=== PATIENT | male | born 1975 | race Caucasian/White ===

== ENCOUNTER → 2018-09-28 | Outpatient (CLI) | payer BC ==
[~2018-09-28] MED LIST: ANDROGEL2.5 GM
[2018-09-28 16:19] LABS: BASOPHILS ABSOLUTE AUTO 0.06 K/mm3 (0.00-0.23); BASOPHILS PERCENT AUTO 2 % (0-2); EOSINOPHILS PERCENT AUTO 3 % (0-6); Hematocrit 38.8 % (37.0-53.0); Hemoglobin 13.4 g/dL (13.5-17.5); IMMATURE GRAN ABSOLUTE AUTO 0.01 K/mm3 (0.00-0.10); IMMATURE GRAN PERCENT AUTO 0 % (0-1); LYMPHOCYTES PERCENT AUTO 29 % (21-46); MONOCYTES ABSOLUTE AUTO 0.93 K/mm3 (0.16-1.47); MONOCYTES PERCENT AUTO 23 % (4-13); Mean Corpuscular HGB 30.9 pg (26.0-34.0); Mean Corpuscular HGB Conc 34.5 g/dL (31.5-36.5); Mean Corpuscular Volume 90 fL (80-100); Mean Platelet Volume 10.4 fL (9.1-12.4); NEUTROPHILS ABSOLUTE AUTO 1.78 K/mm3 (1.96-9.15); NEUTROPHILS PERCENT AUTO 44 % (41-73); Platelet Count 247 K/mm3 (150-400); RDW Coefficient Variation 11.8 % (11.7-14.2); RDW Standard Deviation 38.2 fL (35.1-46.3); Red Blood Cell Count 4.33 M/mm3 (4.30-5.90); White Blood Cell Count 4.08 K/mm3 (4.00-11.30)
[2018-09-28 16:37] LABS: Alanine Aminotransfer (ALT/SGP 32 U/L (12-78); Albumin, Blood 3.9 g/dL (3.4-5.0); Albumin/Globulin Ratio 1.2 (0.8-1.8); Alk Phos 66 U/L (50-136); Anion Gap 5 mmol/L (6-16); Aspartate Aminotrans (AST/SGOT 25 U/L (12-37); Bilirubin, Total 0.4 mg/dL (0.1-1.0); Blood Urea Nitrogen 15 mg/dL (8-24); Bun/Creatinine Ratio 16.1 (12.0-20.0); CO2, Blood 28 mmol/L (21-32); Calcium, Blood 8.5 mg/dL (8.5-10.1); Chloride, Blood 106 mmol/L (98-108); Creatinine, Blood 0.93 mg/dL (0.60-1.20); Globulin, Blood 3.3 g/dL (2.2-4.0); Glomerular Filtration Rate >60 (60-); Glucose, Blood 90 mg/dL (70-99); Magnesium, Blood 2.3 mg/dL (1.6-2.4); Potassium, Blood 3.1 mmol/L (3.5-5.5); Sodium, Blood 139 mmol/L (136-145); Total Protein, Blood 7.2 g/dL (6.4-8.2)
== END ==
LOC: LAB SHORT 15:35 → LAB 15:35
PROVIDERS: Family Medicine
DX: R10.84 Generalized abdominal pain (principal); R11.2 Nausea with vomiting, unspecified
CPT/HCPCS: 80053; 83735; 85025

== ENCOUNTER 2020-12-05 16:52 | Emergency (ER) | payer BC ==
[~2020-12-05] VITALS: Ht 177.8 cm; Wt 90.7 kg
[2020-12-05] MEDS ORDERED: LIDO700A20 TOP (17:43)
== END 2020-12-05 17:54 | disposition home or self-care (01) ==
LOC: ER 16:52
DX: S39.012A Strain of muscle, fascia and tendon of lower back, initial encounter (principal); X50.1XXA Overexertion from prolonged static or awkward postures, initial encounter
CPT/HCPCS: 72100; 96372; 99283-25; A9270; J1885

== ENCOUNTER → 2025-01-22 | Outpatient (CLI) | payer BC ==
[~2025-01-22] MED LIST changes: +LIDO700A20 TOP
[2025-01-22 09:00] LABS: BASOPHILS ABSOLUTE AUTO 0.12 K/mm3 (0.00-0.23); BASOPHILS PERCENT AUTO 2 % (0-2); EOSINOPHILS ABSOLUTE AUTO 0.63 K/mm3 (0.00-0.68); EOSINOPHILS PERCENT AUTO 8 % (0-6); Hematocrit 47.0 % (37.0-53.0); Hemoglobin 16.0 g/dL (13.5-17.5); IMMATURE GRAN ABSOLUTE AUTO 0.05 K/mm3 (0.00-0.10); IMMATURE GRAN PERCENT AUTO 1 % (0-1); LYMPHOCYTES ABSOLUTE AUTO 1.10 K/mm3 (0.84-5.20); LYMPHOCYTES PERCENT AUTO 14 % (21-46); MONOCYTES ABSOLUTE AUTO 0.89 K/mm3 (0.16-1.47); MONOCYTES PERCENT AUTO 12 % (4-13); Mean Corpuscular HGB Conc 34.0 g/dL (31.5-36.5); Mean Corpuscular Volume 93 fL (80-100); NEUTROPHILS ABSOLUTE AUTO 4.94 K/mm3 (1.96-9.15); NEUTROPHILS PERCENT AUTO 64 % (41-73); NRBC ABSOLUTE 0.00 K/mm3 (0.00-0.02); NRBC Auto 0.0 /100 WBC (0.0-0.2); Platelet Count 269 K/mm3 (150-400); RDW Coefficient Variation 13.0 % (11.7-14.2); RDW Standard Deviation 44.6 fL (35.1-46.3)
[2025-01-22 09:19] LABS: Alanine Aminotransfer (ALT/SGP 47.0 U/L (12-78); Albumin, Blood 3.9 g/dL (3.4-5.0); Albumin/Globulin Ratio 1.1 (0.8-1.8); Anion Gap 9.0 mmol/L (3-11); Aspartate Aminotrans (AST/SGOT 27.0 U/L (12-37); Bilirubin, Total 0.4 mg/dL (0.1-1.0); Blood Urea Nitrogen 11.0 mg/dL (8-24); CO2, Blood 29.0 mmol/L (21-32); Calcium, Blood 9.0 mg/dL (8.5-10.1); Chloride, Blood 104.0 mmol/L (98-108); Creatinine, Blood 1.29 mg/dL (0.60-1.20); Globulin, Blood 3.7 g/dL (2.2-4.0); Glucose, Blood 84.0 mg/dL (70-99); Potassium, Blood 4.3 mmol/L (3.5-5.5); Sodium, Blood 138.0 mmol/L (136-145); Thyroid Stimulating Hormone 4.653 uIU/mL (0.360-4.800); Total Protein, Blood 7.6 g/dL (6.4-8.2)
== END ==
LOC: LAB SHORT 08:51 → LAB 08:51
PROVIDERS: Chiropractor
DX: R55 Syncope and collapse (principal)
CPT/HCPCS: 80053; 84443; 84484; 85025; 85379

== ENCOUNTER 2025-06-10 08:26 | Inpatient (IN) | payer BC ==
[~2025-06-10] VITALS: Ht 175.3 cm; Wt 88.8 kg
[~2025-06-10 08:26] MED LIST changes: -OLMESARTAN MEDO20 MG PO
[2025-06-10] MEDS ORDERED: Piperacillin/Tazobactam Sod 3.375 GM in NS 100 ML IV ONE (09:45)
[2025-06-10] MEDS ORDERED: NS 1,000 ML IV SCH ×2 (09:45→16:00)
[2025-06-10] MEDS ORDERED: Ondansetron HCl 2 MG / ML 2ML Vial IV ONE (09:45)
[2025-06-10 10:11] LABS: Source, Urine Clean Catch
[2025-06-10 10:17] LABS: Bilirubin, Urine 3+ (Neg); Color, Urine Amber (P-Yellow); Glucose Qualitative, Urine Neg (Neg); Ketones, Urine 3+ (Neg); Leukocyte Esterase, Urine 1+ (Neg); Protein, Urine 3+ (Neg); Specific Gravity, Urine 1.010 (1.003-1.022); Urobilinogen, Urine 4+ (Normal)
[2025-06-10 10:32] LABS: Red Blood Cells, Urine 0-2 /hpf (0-2); White Blood Cells, Urine 0-2 /hpf (0-5)
[2025-06-10] MEDS ORDERED: Ketorolac Tromethamine 15mg Vial IV ONE (13:40)
[2025-06-10 14:04] LABS: Prothrombin Time Results 14.8 Sec (9.7-11.5)
[2025-06-10] MEDS ORDERED: Ondansetron HCl 2 MG / ML 2ML Vial IV PRN (15:55)
[2025-06-10] MEDS ORDERED: FLU VACC TS2025-26(6MOS UP)/PF 45 MCG/0.5 ML SYRINGE IM SCH (16:00)
[2025-06-10 16:20] LABS: Ferritin, Serum 808.0 ng/mL (26-388); Total Iron Binding Capacity 337.0 ug/dL (250-450)
[2025-06-10] MEDS ORDERED: Ketorolac Tromethamine 15mg Vial IV PRN ×2 (16:40→20:58)
[2025-06-10] MEDS ORDERED: NS 1,000 ML IV ONE (16:40)
[2025-06-10 17:25] VITALS: BP 150/80
[2025-06-10] MEDS ORDERED: OLMESARTAN MEDO20 MG PO (17:46)
[2025-06-10] MEDS ORDERED: Piperacillin/Tazobactam Sod 3.375 GM in NS 100 ML IV SCH (18:00)
[2025-06-10 20:12] VITALS: BP 135/77
[2025-06-10] MEDS ORDERED: NS 250 ML IV PRN (22:05)
[2025-06-11 00:19] VITALS: BP 125/76
[2025-06-11 04:08] VITALS: BP 156/72
--- NOTE | 2025-06-11 04:56 | NUR ---
ORE BUYER CALLED, PT WITH ST CHANGES. HEART RATE INCREASED TO 110-120'S SINCE APPROX 0300 AND PT C/O CHEST CONGESTION/ TIGHTNESS. BIOINFORMATICS TEAM MEMBER PROVIDER NOTIFIED- NO NEW ORDERS.
[2025-06-11 05:41] VITALS: BP 125/77
--- NOTE | 2025-06-11 05:50 | NUR ---
SHIFT SUMMARY PT WITH FEVERS/ CHILLS/ SWEATS DURING THE NIGHT. MEDICATED WITH TORADOL WITH REDUCTION IN FEVER AND RELIEF OF BODY ACHES. PT TACHYCARDIC DURING THE NIGHT WITH HR UP TO 110-120'S WITH SOME ST CHANGES PER VENETIAN BLIND WASHER. PT C/O CHEST CONGESTION/TIGHTNESS. PROVIDER NOTIFIED WITH NO NEW ORDERS. SPUTUM SAMPLE PENDING- PT AWARE OF NEED IF HIS COUGH BECOMES PRODUCTIVE. IVF AND IV ANTIBIOTICS INFUSING PER ORDER. PT INDEPENDENT TO BATHROOM WITH STEADY GAIT. AT BEDSIDE. PT SLEPT INTERMITTENTLY DURING THE NIGHT.
[2025-06-11 07:56] LABS: BASOPHILS ABSOLUTE AUTO 0.05 K/mm3 (0.00-0.23); BASOPHILS PERCENT AUTO 0 % (0-2); EOSINOPHILS ABSOLUTE AUTO 0.17 K/mm3 (0.00-0.68); EOSINOPHILS PERCENT AUTO 1 % (0-6); Hematocrit 39.4 % (37.0-53.0); Hemoglobin 13.7 g/dL (13.5-17.5); IMMATURE GRAN ABSOLUTE AUTO 0.19 K/mm3 (0.00-0.10); IMMATURE GRAN PERCENT AUTO 1 % (0-1); LYMPHOCYTES ABSOLUTE AUTO 0.99 K/mm3 (0.84-5.20); LYMPHOCYTES PERCENT AUTO 4 % (21-46); MONOCYTES ABSOLUTE AUTO 1.67 K/mm3 (0.16-1.47); MONOCYTES PERCENT AUTO 7 % (4-13); Mean Corpuscular HGB Conc 34.8 g/dL (31.5-36.5); Mean Corpuscular Volume 91 fL (80-100); NEUTROPHILS ABSOLUTE AUTO 19.75 K/mm3 (1.96-9.15); NEUTROPHILS PERCENT AUTO 87 % (41-73); NRBC ABSOLUTE 0.00 K/mm3 (0.00-0.02); NRBC Auto 0.0 /100 WBC (0.0-0.2); Platelet Count 233 K/mm3 (150-400); RDW Coefficient Variation 13.2 % (11.7-14.2); RDW Standard Deviation 45.0 fL (35.1-46.3)
[2025-06-11 08:13] VITALS: BP 141/83
[2025-06-11 08:21] LABS: Alanine Aminotransfer (ALT/SGP 205.0 U/L (12-78); Albumin, Blood 2.3 g/dL (3.4-5.0); Albumin/Globulin Ratio 0.6 (0.8-1.8); Anion Gap 9.0 mmol/L (3-11); Aspartate Aminotrans (AST/SGOT 82.0 U/L (12-37); Bilirubin, Total 8.1 mg/dL (0.1-1.0); Blood Urea Nitrogen 11.0 mg/dL (8-24); CO2, Blood 24.0 mmol/L (21-32); Calcium, Blood 8.2 mg/dL (8.5-10.1); Chloride, Blood 105.0 mmol/L (98-108); Creatinine, Blood 1.46 mg/dL (0.60-1.20); Globulin, Blood 3.8 g/dL (2.2-4.0); Glucose, Blood 129.0 mg/dL (70-99); Potassium, Blood 3.7 mmol/L (3.5-5.5); Sodium, Blood 134.0 mmol/L (136-145); Total Protein, Blood 6.1 g/dL (6.4-8.2)
[2025-06-11] MEDS ORDERED: NS 1,000 ML IV SCH (09:00)
[2025-06-11] MEDS ORDERED: Enoxaparin 30 MG/0.3 ML SYR SC SCH (09:00)
--- NOTE | 2025-06-11 18:46 | NUR ---
PATIENT IN BED MOST OF DAY, WAS ABLE TO AMBULATE FLOREZ FOR A WHILE BUT NOTED SOME SHORTNESS OF BREATH. PATIENT NAUSEATED AND UNABLE TO EAT A LOT BUT TOLERATED SMALL SIPS AND CRACKERS. EKG DONE 2 TIMES TODAY PER MD. PATIENT CONTINUES TO HAVE CHEST PAIN AND DISCOMFORT. STATED "I FEEL THE CRUD MOVING UP AND MAKING IT A LITTLE HARDER TO BREATH". ENCOURAGED PATIENT TO LET STAFF KNOW IF HE WANTS OXYGEN, REEVALUATED OR POTENTIAL BREATHING TREATMENT. PATIENT DECLINED AT THIS TIME.
[2025-06-11 19:49] VITALS: BP 122/71
[2025-06-11 23:35] VITALS: BP 116/73
[2025-06-12 04:28] VITALS: BP 108/78
--- NOTE | 2025-06-12 06:18 | NUR ---
SHIFT SUMMARY PT CONTINUES TO RUN FEVERS DURING THE NIGHT. MEDICATED WITH TORADOL PER EMAR. IV ANTIBIOTICS GIVEN PER ORDER. PT CONTINUES TO COMPLAIN OF CHEST CONGESTION AND TIGHTNESS. MUCINEX ORDERD AND GIVEN. SPUTUM SAMPLE IS STILL NEEDED. PT UP INDEPENDENTLY WITH STEADY GAIT. GOWN AND LINEN CHANGES DONE FOR SWEATING. AT BEDSIDE. PT SLEPT INTERMITTENTLY DURING THE NIGHT.
[2025-06-12 06:21] LABS: BASOPHILS ABSOLUTE AUTO 0.06 K/mm3 (0.00-0.23); BASOPHILS PERCENT AUTO 0 % (0-2); EOSINOPHILS ABSOLUTE AUTO 0.43 K/mm3 (0.00-0.68); EOSINOPHILS PERCENT AUTO 2 % (0-6); Hematocrit 38.9 % (37.0-53.0); Hemoglobin 13.5 g/dL (13.5-17.5); IMMATURE GRAN ABSOLUTE AUTO 0.22 K/mm3 (0.00-0.10); IMMATURE GRAN PERCENT AUTO 1 % (0-1); LYMPHOCYTES ABSOLUTE AUTO 1.21 K/mm3 (0.84-5.20); LYMPHOCYTES PERCENT AUTO 5 % (21-46); MONOCYTES ABSOLUTE AUTO 1.76 K/mm3 (0.16-1.47); MONOCYTES PERCENT AUTO 8 % (4-13); Mean Corpuscular HGB Conc 34.7 g/dL (31.5-36.5); Mean Corpuscular Volume 91 fL (80-100); NEUTROPHILS ABSOLUTE AUTO 19.06 K/mm3 (1.96-9.15); NEUTROPHILS PERCENT AUTO 84 % (41-73); NRBC ABSOLUTE 0.00 K/mm3 (0.00-0.02); NRBC Auto 0.0 /100 WBC (0.0-0.2); Platelet Count 274 K/mm3 (150-400); RDW Coefficient Variation 13.5 % (11.7-14.2); RDW Standard Deviation 45.4 fL (35.1-46.3)
[2025-06-12 06:34] LABS: Alanine Aminotransfer (ALT/SGP 181.0 U/L (12-78); Albumin, Blood 2.4 g/dL (3.4-5.0); Albumin/Globulin Ratio 0.6 (0.8-1.8); Anion Gap 9.0 mmol/L (3-11); Aspartate Aminotrans (AST/SGOT 59.0 U/L (12-37); Bilirubin, Total 8.4 mg/dL (0.1-1.0); Blood Urea Nitrogen 11.0 mg/dL (8-24); CO2, Blood 24.0 mmol/L (21-32); Calcium, Blood 8.6 mg/dL (8.5-10.1); Chloride, Blood 105.0 mmol/L (98-108); Creatinine, Blood 1.44 mg/dL (0.60-1.20); Globulin, Blood 3.8 g/dL (2.2-4.0); Glucose, Blood 113.0 mg/dL (70-99); Potassium, Blood 3.6 mmol/L (3.5-5.5); Sodium, Blood 134.0 mmol/L (136-145); Total Protein, Blood 6.2 g/dL (6.4-8.2)
[2025-06-12 07:17] VITALS: BP 123/75
[2025-06-12 08:27] LABS: HEPATITIS A ANTIBODY, IGM Negative (Negative); HEPATITIS C AB CIA INTERP Negative (Negative); HEPATITIS C ANTIBODY CIA INDEX 0.08 IV
[2025-06-12 11:25] LABS: CERULOPLASMIN 29 mg/dL (15-30)
[2025-06-12 11:58] VITALS: BP 121/72
[2025-06-12 11:58] LABS: Prothrombin Time Results 15.2 Sec (9.7-11.5)
[2025-06-12 16:30] VITALS: BP 132/80
--- NOTE | 2025-06-12 19:12 | NUR ---
END OF SHIFT NOTE PATIENT RESTING IN BED WITH FAMILY AT BEDSIDE. PATIENT A&O4, ABLE TO MAKE NEEDS KNOWN. IND IN ROOM AND TO BATHROOM. PATIENT AWARE OF NEED OF SPUTUM SAMPLE, CUP IN BATHROOM. PATIENT SHOWERED TODAY. NO OTHER CONCERNS FOR THIS SHIFT.
[2025-06-12 19:45] VITALS: BP 126/72
[2025-06-12 20:55] LABS: HIV SEROLOGIC INTERPRETATION HIV Abs Neg; HIV-1 ANTIBODY Negative (Negative); HIV-2 ANTIBODY Negative (Negative)
[2025-06-12 20:56] LABS: HIV 1,2 COMBO ANTIGEN/ANTIBODY Reactive (Negative)
[2025-06-12 23:58] VITALS: BP 112/64
--- NOTE | 2025-06-13 | NUR ---
PROVIDER CONTACTED PT REPORTS GERD SYMPTOMS "HOT BURPS" INDIGESTION, PT STATES THEY NORMALLY TAKE TUMS, PROVIDER ORDERED 500MG CHEWABLE TAB TUMS PRN.
[2025-06-13 04:13] VITALS: BP 108/60
[2025-06-13 05:37] LABS: BASOPHILS ABSOLUTE AUTO 0.09 K/mm3 (0.00-0.23); BASOPHILS PERCENT AUTO 0 % (0-2); EOSINOPHILS ABSOLUTE AUTO 0.39 K/mm3 (0.00-0.68); EOSINOPHILS PERCENT AUTO 2 % (0-6); Hematocrit 38.6 % (37.0-53.0); Hemoglobin 13.2 g/dL (13.5-17.5); IMMATURE GRAN ABSOLUTE AUTO 0.20 K/mm3 (0.00-0.10); IMMATURE GRAN PERCENT AUTO 1 % (0-1); LYMPHOCYTES ABSOLUTE AUTO 2.11 K/mm3 (0.84-5.20); LYMPHOCYTES PERCENT AUTO 9 % (21-46); MONOCYTES ABSOLUTE AUTO 1.76 K/mm3 (0.16-1.47); MONOCYTES PERCENT AUTO 8 % (4-13); Mean Corpuscular HGB Conc 34.2 g/dL (31.5-36.5); Mean Corpuscular Volume 91 fL (80-100); NEUTROPHILS ABSOLUTE AUTO 18.04 K/mm3 (1.96-9.15); NEUTROPHILS PERCENT AUTO 80 % (41-73); NRBC ABSOLUTE 0.00 K/mm3 (0.00-0.02); NRBC Auto 0.0 /100 WBC (0.0-0.2); Platelet Count 304 K/mm3 (150-400); RDW Coefficient Variation 13.8 % (11.7-14.2); RDW Standard Deviation 46.5 fL (35.1-46.3)
[2025-06-13 05:50] LABS: Prothrombin Time Results 14.3 Sec (9.7-11.5)
[2025-06-13 06:07] LABS: Alanine Aminotransfer (ALT/SGP 164.0 U/L (12-78); Albumin, Blood 2.0 g/dL (3.4-5.0); Albumin/Globulin Ratio 0.5 (0.8-1.8); Anion Gap 12.0 mmol/L (3-11); Aspartate Aminotrans (AST/SGOT 60.0 U/L (12-37); Bilirubin, Total 10.5 mg/dL (0.1-1.0); Blood Urea Nitrogen 16.0 mg/dL (8-24); CO2, Blood 23.0 mmol/L (21-32); Calcium, Blood 8.9 mg/dL (8.5-10.1); Chloride, Blood 101.0 mmol/L (98-108); Creatinine, Blood 1.86 mg/dL (0.60-1.20); Globulin, Blood 4.4 g/dL (2.2-4.0); Glucose, Blood 85.0 mg/dL (70-99); Potassium, Blood 3.7 mmol/L (3.5-5.5); Sodium, Blood 132.0 mmol/L (136-145); Total Protein, Blood 6.4 g/dL (6.4-8.2)
--- NOTE | 2025-06-13 06:35 | NUR ---
PLETHORA OF LABS SENT THIS EVENING, A FEW BOUTS OF HYPOXIA PT SLEEPS SPOUSE ATESTS THAT PT SNORES A LOT AND HAS ENCOURAGED PT TO PURSUE A SLEEP STUDY. O2 PROVIDED. PRN'S GIVEN THIS EVENING FOR PAIN R/T CHEST TIGHTNESS/PAIN. SPUTUM AND RESP PANEL SENT TO LAB. TYLENOL ORDERED FOR FEVER, BUT ONLY IF PT IS COMPLAINING OF DISCOMFORT SPECIFICALLY RELATED TO THE FEVER PER DR DAMIAN. PT STILL COMPLAINING OF CHEST TIGHTNESS, NO EKG CHANGES REPORTED PER TELEMETRY. PT AOX4 AND USES CALL LIGHT APPROPRIATELY.
[2025-06-13 07:13] LABS: Influenza A/2009-H1 Not Detected (NOT DETECT); SARS-Cov-2 (COVID-19), BioFire Not Detected (NOT DETECT)
[2025-06-13 07:42] VITALS: BP 121/70
[2025-06-13 10:14] LABS: ALPHA-1-ANTITRYPSIN 278 mg/dL (90-200)
[2025-06-13 10:44] LABS: FACTIN SMOOTH MUSCLE,IGG ELISA 6 Units (0-19); MITOCHONDRIAL (M2) AB,IGG 5.0 Units (0.0-24.9)
[2025-06-13 11:37] VITALS: BP 116/77
[2025-06-13] MEDS ORDERED: NS 1,000 ML IV SCH (14:00)
[2025-06-13 14:25] LABS: CMV ANTIBODY IGG 8.60 U/mL (<=0.59); CMV ANTIBODY IGM >240.0 AU/mL (<=29.9)
[2025-06-13 14:28] LABS: EBV AB TO VIRAL CAPSID AG IGM 16.3 U/mL (<=35.9)
[2025-06-13 16:03] VITALS: BP 101/68
--- NOTE | 2025-06-13 19:21 | NUR ---
assumed care of pt PT IS A/O X 4 AT BEDSIDE. PT LAYING QUIETLY IN BED WITH PRODUCTIVE COUGH, C/O CHEST PAIN DUE TO CONTINOUS COUGHING, PT MEDICATED PER MAR. PT MEDICATED FOR FEVER ASWELL ANTIBIOTICS INFUSING. DR ALBA IN WITH PT DISCUSSING TEST RESULTS AND NEED FOR CONT TESTING. CALL LIGHT WITHIN REACH PT ABLE TO MAKE NEEDS KNOWN. NO ADVERSE EVENTS NOTED FOR THE EVENING.
[2025-06-13 20:00] VITALS: BP 142/77
[2025-06-13 20:13] LABS: ANTI-NUCLEAR AB ANA,IGG ELISA None Detected (None Detected)
[2025-06-14] VITALS (9 sets, daily range): BP systolic 100–141; BP diastolic 54–85
--- NOTE | 2025-06-14 02:41 | NUR ---
SHIFT SUMMARY PT IS A&OX4. COOPERATIVE WITH CARES. AT BEDSIDE. AT THE BEGINNING OF SHIFT PT WAS EXPERIENCING DROPS ON 02 WELL DYSPNEA. OXYGEN WAS INCREASED TO 6L HEATED HIGH FLOW NC FROM 2L. THROUGHOUT SHIFT SEEMS TO BE TOLERATING 6L. AROUND 0015 PT SPIKED LOW GRADE TEMP OF 100.3. REPORT FROM DAY SHIFT RN STATING TYLENOL CAUSED PT TO BE NAUSEATED. LET HIS TEMP RIDE FOR ABOUT 1 HOUR. REPEAT ORAL TEMP AT 0150 WAS 98.7. PT FREQUENTLY C/O OF FEELING ILL. BED IN LOWEST POSITION. CALL LIGHT IN REACH.
[2025-06-14] MEDS ORDERED: Guaifenesin/Dextromethorphan Syrup 5 ML UDC PO PRN (04:35)
--- NOTE | 2025-06-14 04:35 | NUR ---
PT UNABLE TO STOP COUGHING. NIMO MEEHAN NOT DUE UNTIL 529. RECEIVED ORDER FROM DR. SMITH FOR TREV FELIZ. ORDER PLACED AND MEDICATION ADMINISTERED TO PT.
[2025-06-14 05:11] LABS: BASOPHILS ABSOLUTE AUTO 0.12 K/mm3 (0.00-0.23); BASOPHILS PERCENT AUTO 1 % (0-2); EOSINOPHILS ABSOLUTE AUTO 0.71 K/mm3 (0.00-0.68); EOSINOPHILS PERCENT AUTO 4 % (0-6); Hematocrit 36.2 % (37.0-53.0); Hemoglobin 12.8 g/dL (13.5-17.5); IMMATURE GRAN ABSOLUTE AUTO 0.21 K/mm3 (0.00-0.10); IMMATURE GRAN PERCENT AUTO 1 % (0-1); LYMPHOCYTES ABSOLUTE AUTO 1.22 K/mm3 (0.84-5.20); LYMPHOCYTES PERCENT AUTO 6 % (21-46); MONOCYTES ABSOLUTE AUTO 1.57 K/mm3 (0.16-1.47); MONOCYTES PERCENT AUTO 8 % (4-13); Mean Corpuscular HGB Conc 35.4 g/dL (31.5-36.5); Mean Corpuscular Volume 89 fL (80-100); NEUTROPHILS ABSOLUTE AUTO 16.15 K/mm3 (1.96-9.15); NEUTROPHILS PERCENT AUTO 81 % (41-73); NRBC ABSOLUTE 0.00 K/mm3 (0.00-0.02); NRBC Auto 0.0 /100 WBC (0.0-0.2); Platelet Count 338 K/mm3 (150-400); RDW Coefficient Variation 13.8 % (11.7-14.2); RDW Standard Deviation 45.4 fL (35.1-46.3)
[2025-06-14 05:29] LABS: Prothrombin Time Results 14.5 Sec (9.7-11.5)
[2025-06-14 05:46] LABS: Alanine Aminotransfer (ALT/SGP 154.0 U/L (12-78); Albumin, Blood 1.7 g/dL (3.4-5.0); Albumin/Globulin Ratio 0.4 (0.8-1.8); Anion Gap 9.0 mmol/L (3-11); Aspartate Aminotrans (AST/SGOT 74.0 U/L (12-37); Bilirubin, Total 11.8 mg/dL (0.1-1.0); Blood Urea Nitrogen 18.0 mg/dL (8-24); CO2, Blood 25.0 mmol/L (21-32); Calcium, Blood 8.3 mg/dL (8.5-10.1); Chloride, Blood 103.0 mmol/L (98-108); Creatinine, Blood 1.93 mg/dL (0.60-1.20); Globulin, Blood 3.9 g/dL (2.2-4.0); Glucose, Blood 94.0 mg/dL (70-99); Potassium, Blood 3.3 mmol/L (3.5-5.5); Sodium, Blood 134.0 mmol/L (136-145); Total Protein, Blood 5.6 g/dL (6.4-8.2)
--- NOTE | 2025-06-14 07:43 | NUR ---
ASSUMED CARE OF PT- PT IN BED, APPEARS TO HAVE INCREASED WORK OF BREATHING RESP RATE 28. BREATH SOUNDS COARSE WHEEZES IN THE LEFT THAT CLEARED WITH COUGH. PT IS HOT TO THE TOUCH, AND DIAPHORETIC, HR TACHY ON TELE 124 BUT SINUS RYTHM. PT IS ON 6L O2 VIA HIGH FLOW NC. WILL CALL AND SPEAK TO ABOUT PLACING THE PT ON CONT BIOX TO MONITOR O2 NEEDS.
--- NOTE | 2025-06-14 08:13 | NUR ---
CALLED DR ALBA- RECIEVED ORDER FOR CONT BIOX, O2 THERAPY AND CHEST XR. NOTIFIED RT. PLACED PT ON CONT BIOX VIA BLUE TOOTH TO PREVENT DECREASED MOBILITY BECAUSE OF INCREASED LINES AND TUBES. ORDER TO STOP IVF HOWEVER THE PT IS NOT ON IVF AT THIS TIME. PT ALREADY ON ABX AND WBC COUNT DID GO DOWN TODAY.
--- NOTE | 2025-06-14 08:25 | NUR ---
CALLED DR ALBA- PT STATED HE WORE A ZIO PATCH OUT PT FOR 2 WEEKS BUT NEVER HEARD ABOUT THE RESULT FROM HIS PROVIDER. PT SPOUSE AT THE BEDSIDE STATES THE PT AVERAGE HR IS 77 THE PT HAS ONLY BEEN UNDER 100 ON ONE SET OF VS. TOLD DR ALBA THE PT WAS NOT ON ANY IVF SHE WAS TOLD IN OUR LAST COMMUNICATION. PT RETURNED FROM XR AND IS CURRENTLY HAVING LABS DRAWN. PT HAS REQUESTED NO VISITORS OTHER THAN HIS CLOSE FAMILY.
[2025-06-14] MEDS ORDERED: Potassium Chloride 10 Meq Tablet SA PO ONE (11:10)
[2025-06-14] MEDS ORDERED: Darbepoetin (Pharmacy Consult) SC SCH (12:55)
[2025-06-14] MEDS ORDERED: Albumin (Human) 25gm/100ml 100 ML IV SCH (17:00)
[2025-06-14 17:28] LABS: Magnesium, Blood 2.1 mg/dL (1.6-2.4); Phosphorus, Blood 2.4 mg/dL (2.5-4.9); Potassium, Blood 3.4 mmol/L (3.5-5.5)
[2025-06-14] MEDS ORDERED: Potassium Phosphate Dibasic 20 MM in Dextrose 5% 500 ML IV ONE (18:25)
--- NOTE | 2025-06-14 20:43 | NUR ---
SHIFT SUMMARY- PT HAS HAD A LOT OF TESTING COMPLETED TODAY, NEW SEND OUT LABS WERE ORDERED. CHEST XR ORDERED, CYNTHIA WAS CONSULTED FOR ARF. HE PLACED AN ORDER FOR ECHO FOR TOMORROW AM. PT IN BED AT THE TIME OF BEDSIDE REPORT, O2 DOWN TO 3L VIA NC SATS GREATER THAN 90%. PT AND SPOUSE HAVE ASKED THAT STAFF ONLY SPEAK TO THE TWO OF THEM, CYNTHIA HEREDIA AND PARTH ARE AWARE, VERBAL RELEASE OF INFO WAS FILLED OUT. PT IN BED NO S&S OF DISTRESS AT THIS TIME.
[2025-06-14 21:40] LABS: QUANTIFERON MITOGEN MINUS NIL 9.95 IU/mL; QUANTIFERON NIL 0.05 IU/mL; QUANTIFERON PLUS TB1 MINUS NIL 0.00 IU/mL (<=0.34); QUANTIFERON PLUS TB2 MINUS NIL 0.00 IU/mL (<=0.34)
--- NOTE | 2025-06-15 01:10 | NUR ---
Physician Contacted Per patient request, call made out to Dr. Sam Walton. Obtained orders for melatonin nightly prn for sleep to start now and one-time dose of 10mg IV reglan for persistent hiccups that had started around 1800 tonight. Orders were read back w/ confirmation.
[2025-06-15] MEDS ORDERED: Metoclopramide HCl 5MG / ML 2ML Vial IV ONE (01:15)
[2025-06-15 04:52] VITALS: BP 118/68
[2025-06-15 05:24] LABS: Hematocrit 35.5 % (37.0-53.0); Hemoglobin 12.4 g/dL (13.5-17.5)
[2025-06-15 06:10] LABS: Albumin, Blood 1.9 g/dL (3.4-5.0); Anion Gap 9 mmol/L (3-11); Blood Urea Nitrogen 21 mg/dL (8-24); CO2, Blood 27 mmol/L (21-32); Calcium, Blood 8.2 mg/dL (8.5-10.1); Chloride, Blood 99 mmol/L (98-108); Creatinine, Blood 2.27 mg/dL (0.60-1.20); Glucose, Blood 105 mg/dL (70-99); Magnesium, Blood 2.0 mg/dL (1.6-2.4); Phosphorus, Blood 3.3 mg/dL (2.5-4.9); Potassium, Blood 3.2 mmol/L (3.5-5.5); Sodium, Blood 132 mmol/L (136-145); Thyroid Stimulating Hormone 7.470 uIU/mL (0.360-4.800); Uric Acid, Blood 3.3 mg/dL (3.5-7.2)
[2025-06-15 07:41] VITALS: BP 124/69
[2025-06-15 08:41] LABS: BASOPHILS ABSOLUTE AUTO 0.12 K/mm3 (0.00-0.23); BASOPHILS PERCENT AUTO 1 % (0-2); EOSINOPHILS ABSOLUTE AUTO 0.84 K/mm3 (0.00-0.68); EOSINOPHILS PERCENT AUTO 4 % (0-6); Hematocrit 35.9 % (37.0-53.0); Hemoglobin 12.5 g/dL (13.5-17.5); IMMATURE GRAN ABSOLUTE AUTO 0.31 K/mm3 (0.00-0.10); IMMATURE GRAN PERCENT AUTO 2 % (0-1); LYMPHOCYTES ABSOLUTE AUTO 1.40 K/mm3 (0.84-5.20); LYMPHOCYTES PERCENT AUTO 7 % (21-46); MONOCYTES ABSOLUTE AUTO 1.62 K/mm3 (0.16-1.47); MONOCYTES PERCENT AUTO 8 % (4-13); Mean Corpuscular HGB Conc 34.8 g/dL (31.5-36.5); Mean Corpuscular Volume 89 fL (80-100); NEUTROPHILS ABSOLUTE AUTO 15.47 K/mm3 (1.96-9.15); NEUTROPHILS PERCENT AUTO 78 % (41-73); NRBC ABSOLUTE 0.00 K/mm3 (0.00-0.02); NRBC Auto 0.0 /100 WBC (0.0-0.2); Platelet Count 386 K/mm3 (150-400); RDW Coefficient Variation 14.2 % (11.7-14.2); RDW Standard Deviation 46.5 fL (35.1-46.3)
[2025-06-15 08:57] LABS: Alanine Aminotransfer (ALT/SGP 169.0 U/L (12-78); Albumin, Blood 1.9 g/dL (3.4-5.0); Albumin/Globulin Ratio 0.5 (0.8-1.8); Aspartate Aminotrans (AST/SGOT 116.0 U/L (12-37); Bilirubin, Direct 10.5 mg/dL (0.0-0.3); Bilirubin, Indirect 2.7 mg/dL (0.1-0.7); Bilirubin, Total 13.2 mg/dL (0.1-1.0); Globulin, Blood 4.0 g/dL (2.2-4.0); Total Protein, Blood 5.9 g/dL (6.4-8.2)
[2025-06-15] MEDS ORDERED: Potassium Chloride 10 Meq Tablet SA PO SCH (09:00)
[2025-06-15 11:20] VITALS: BP 122/71
[2025-06-15] MEDS ORDERED: Potassium Chloride 10 Meq Tablet SA PO ONE (11:20)
[2025-06-15 11:47] LABS: HIV-1 QUALITATIVE BY NAAT Not Detected (Not Detected); HIV-2 QUALITATIVE BY NAAT Not Detected (Not Detected)
--- NOTE | 2025-06-15 11:48 | NUR ---
NOTE SPOEK WITH DR MARIE REGARDING SECOND ECHO ORDER. CANCELED. FIRST ORDER RESULTS READ TO DR MARIE. POTASSIUM ORDER VERIFIED.
[2025-06-15 15:37] VITALS: BP 113/73
[2025-06-15] MEDS ORDERED: Multivitamins 1 Tab PO SCH (16:15)
--- NOTE | 2025-06-15 18:47 | NUR ---
END OF SHIFT NOTE PATIENT RESTING IN BED. A&O4, ABLE TO MAKE NEEDS KNOWN. FAMILY AT BEDSIDE. PATIENT SHOWERED TODAY, IV INFUSING TO ORDER, PATIENT ATE A COUPLE YOGURTS TODAY, A COUPLE JELLOS, SOME CEREAL AND AN ENSURE DRINK. PATIENT HAS RASH TO HIS BACK WHICH IS ITCHY, EYES ARE ALSO DRY AND ITCHY THIS EVENING. COUGH IS BETTER TODAY, PER PATIENT REPORT. 24 HOUR URINE COLLECTION IN PROCESS. NO OTHER CONCERNS FOR THIS SHIFT.
[2025-06-15] MEDS ORDERED: Ketotifen Fumarate Opth Soln BOTHEYES PRN (20:25)
[2025-06-15] MEDS ORDERED: DiphenhydrAMINE HCL/Zinc Acet Cream TOP PRN (20:25)
[2025-06-15 21:31] LABS: FACTIN SMOOTH MUSCLE,IGG ELISA 5 Units (0-19); MITOCHONDRIAL (M2) AB,IGG 4.1 Units (0.0-24.9)
[2025-06-15 21:45] LABS: Sodium, Urine 49 mmol/L (20-110)
[2025-06-15 21:48] LABS: Protein, Urine Quantitative 55.7 mg/dL (0.0-11.9)
[2025-06-16] MEDS ORDERED: Ondansetron HCl 2 MG / ML 2ML Vial IV ONE (00:45)
[2025-06-16 03:36] VITALS: BP 130/72
--- NOTE | 2025-06-16 05:01 | NUR ---
SUMMARY: PT A/OX4, ENDORSES NEEDS AND IS PLEASANT AND COOPERATIVE W/CARE. HE'S UP INDEPENDENTLY AND CONTINENT TO RESTROOM AD KILLIAN. 24 HR URINE COMPLETED THIS SHIFT AND URINE REMAINS DARK JOHN COLORED. PT C/O NAGGING COUGH AND ONGOING HICCUPS W/TESSALON PERLS, ROBITUSSIN AND ZOFRAN RECEIVED PER EMAR. ADDITIONAL DOSE OF X1 ZOFRAN 4MG IV WAS RX'D AND RECEIVED FOR BREAKTHROUGH GI DISCOMFORT. ALSO RX'D BENEDRYL CREAM AND ZADITOR EYE GTTS FOR DIFFUSE RASH TO BACK AND FLANK AND C/O ITCHING EYES. PRN ROXICODONE WAS RECEIVED FOR TOLERABLE RELIEF OF PLEURITIC/RIB PAIN R/T COUGHING. HE REMAINS ON 3L O2 VIA NC W/CONT BIOX INTACT. HE'S NSR/S.TACH AT 90'S-100'S BPM ON TELE. VSS/AFEBRILE AND NO ACUTE CHANGES. WILL REPORT TO DAY RN.
[2025-06-16 05:27] LABS: BASOPHILS ABSOLUTE AUTO 0.15 K/mm3 (0.00-0.23); BASOPHILS PERCENT AUTO 1 % (0-2); EOSINOPHILS ABSOLUTE AUTO 1.05 K/mm3 (0.00-0.68); EOSINOPHILS PERCENT AUTO 6 % (0-6); Hematocrit 35.1 % (37.0-53.0); Hemoglobin 12.6 g/dL (13.5-17.5); IMMATURE GRAN ABSOLUTE AUTO 0.36 K/mm3 (0.00-0.10); IMMATURE GRAN PERCENT AUTO 2 % (0-1); LYMPHOCYTES ABSOLUTE AUTO 1.52 K/mm3 (0.84-5.20); LYMPHOCYTES PERCENT AUTO 9 % (21-46); MONOCYTES ABSOLUTE AUTO 1.36 K/mm3 (0.16-1.47); MONOCYTES PERCENT AUTO 8 % (4-13); Mean Corpuscular HGB Conc 35.9 g/dL (31.5-36.5); Mean Corpuscular Volume 87 fL (80-100); NEUTROPHILS ABSOLUTE AUTO 13.17 K/mm3 (1.96-9.15); NEUTROPHILS PERCENT AUTO 75 % (41-73); NRBC ABSOLUTE 0.00 K/mm3 (0.00-0.02); NRBC Auto 0.0 /100 WBC (0.0-0.2); Platelet Count 446 K/mm3 (150-400); RDW Coefficient Variation 14.2 % (11.7-14.2); RDW Standard Deviation 45.2 fL (35.1-46.3)
[2025-06-16 06:01] LABS: ANTI-NUCLEAR AB ANA,IGG ELISA None Detected (None Detected)
[2025-06-16 06:29] LABS: Alanine Aminotransfer (ALT/SGP 207.0 U/L (12-78); Albumin, Blood 2.5 g/dL (3.4-5.0); Albumin/Globulin Ratio 0.7 (0.8-1.8); Anion Gap 9.0 mmol/L (3-11); Aspartate Aminotrans (AST/SGOT 151.0 U/L (12-37); Bilirubin, Total 13.3 mg/dL (0.1-1.0); Blood Urea Nitrogen 21.0 mg/dL (8-24); CO2, Blood 30.0 mmol/L (21-32); Calcium, Blood 8.6 mg/dL (8.5-10.1); Chloride, Blood 97.0 mmol/L (98-108); Creatinine, Blood 1.89 mg/dL (0.60-1.20); Globulin, Blood 3.5 g/dL (2.2-4.0); Glucose, Blood 100.0 mg/dL (70-99); Magnesium, Blood 2.1 mg/dL (1.6-2.4); Phosphorus, Blood 2.2 mg/dL (2.5-4.9); Potassium, Blood 3.0 mmol/L (3.5-5.5); Sodium, Blood 133.0 mmol/L (136-145); Total Protein, Blood 6.0 g/dL (6.4-8.2)
[2025-06-16] MEDS ORDERED: Potassium Phosphate Dibasic 20 MM in Dextrose 5% 500 ML IV STA (06:52)
[2025-06-16 07:17] VITALS: BP 127/72
[2025-06-16 07:47] LABS: ALPHA-1-ANTITRYPSIN 343 mg/dL (90-200)
[2025-06-16 11:36] VITALS: BP 122/67
[2025-06-16 14:09] LABS: % CD4 21 % (32-64); ABSOLUTE CD4 332 cells/uL (430-1800)
[2025-06-16] MEDS ORDERED: Chlorpheniramine/Hydroc Polistir 5 ML UDC PO PRN (14:25)
[2025-06-16 15:27] LABS: CMV QNT BY NAAT, PL LOG IU/ML 1.69; CMV QNT BY NAAT, PLASMA INTERP Detected (Not Detected); CMV QNT BY NAAT, PLASMA IU/ML 49 IU/mL
[2025-06-16 16:04] VITALS: BP 142/77
[2025-06-16 18:14] LABS: CERULOPLASMIN 28 mg/dL (15-30)
--- NOTE | 2025-06-16 18:25 | NUR ---
PT AND EXPRESSING FRUSTRATION AND CONCERN FOR PT CURRENT STATUS. THEY FEEL LIKE THEY SHOULD HAVE SOME ANSWERS AND THAT PT SHOULD BE FEELING BETTER INSTEAD OF FEELING WORSE. PT REPORTS REGLAN HAS BEEN EFFECTIVE IN TREATING HICCUPS SO FAR. LITTLE TO NO RELIEF WITH COUGH. PT REPORTS COUGH WORSE AT NIGHT. PAIN WITH COUGH, TREATED PER EMAR. INDEPENDENT IN THE ROOM. CALLS APPROPRIATELY. PT IS UNAABLE TO TOLORATE MUCH PO INTAKE. OFFERED ENSURE CLEAR THIS EVENING. INTERMITTENT NAUSEA THROUGHOUT SHIFT.
[2025-06-16 19:37] VITALS: BP 127/73
[2025-06-16 22:56] VITALS: BP 131/74
--- NOTE | 2025-06-16 23:40 | NUR ---
PT C/O PERSISTENT NAGGING HICCUPS, INDIGESTION AND REFLUX DEPSITE RECEIVING PRN ZOFRAN AND TUMS. HE'S ALSO BEEN RELUCTANT TO TAKE REGLAN AFTER NEW RASH DEVELOPED FOLLOWING PRIOR 1ST DOSE OF IV REGLAN THAT'S NOW SPREAD FROM HIS BACK AND FLANK TO HIS CHEST, ARMS AND ABDO AFTER ORAL REGLAN WAS RECEIVED ON DAY SHIFT. ROSANNA (COBBLER APPRENTICE) MADE AWARE AND PEPCID [id number] IV X1 WAS RX'D AND PROVIDED. PT HAS DENIED GI UPSET, PAIN AND HICCUPS SINCE AND HASN'T REQUIRED ANY ADDITIONAL PRN MEDS. WILL CONTINUE TO MONITOR.
[2025-06-17 03:26] VITALS: BP 124/75
[2025-06-17 04:29] LABS: VARICELLA-ZOSTER VIRUS AB,IGG 11.5 S/CO (<=0.99); VARICELLA-ZOSTER VIRUS AB,IGM 0.74 ISR (<=0.90)
--- NOTE | 2025-06-17 05:58 | NUR ---
SUMMARY: PT A/OX4, ENDORSES NEEDS AND IS PLEASANT AND COOPERATIVE W/CARE. SUPPORTIVE REMAINS AT BEDSIDE BUT DURING SHIFT REPORT THEY EXPRESSED CONCERN AND FRUSTRATION W/SITUATION SURROUNDING UNKNOWN ETIOLOGY OF VAST ARRAY OF SYMPTOMS AND ONGOING PULM/GI DISTRESS. PT REPORTED NAGGING HACKING COUGH W/ASSOCIATED BACK AND PLEURITIC PAIN, INTERMITTENT NAUSEA, PERISISTANT HICCUPS AND GASTRIC REFLUX. SYMPTOMS WERE ONLY MILDLY AND TEMPORARILY RELEIVED BY PRN TUSSIONEX, ROBITUSSIN, ROXICODONE, ZOFRAN, TUMS AND MELATONIN. RED RASH TO BACK AND FLANK HAS ALSO NOW SPREAD TO ARMS, ABDO AND CHEST W/PT RELUCTANT TO TAKE REGLAN D/T POSSIBLE CORRELATED REACTION. BENEDRYL CREAM APPLIED TO AFFECTED AREA AND ZADITOR EYE GTTS PROVIDED FOR C/O ITCHING DRY RED EYES. ROSANNA ([employer] LINER HELPER) ALERTED TO UNRELEIVED GI DISTRESS AND X1 IV PEPCID WAS RECEIVED FOR SEEMINGLY GOOD EFFECT. HE'S SINCE DENIED NEED FOR ANY ADDITIONAL PRN MEDS AND GI DISTRESS, PAIN AND COUGHING APPEAR IMPROVED. PT REMAINS ON 3L O2 VIA NC W/CONT BIOX INTACT AND HE'S MILDLY SOB W/EXERTION. PT IS NSR ON TELE AT 80'S-90'S BPM. VSS/AFEBRILE, NO ACUTE CHANGES. WILL REPORT TO DAY RN.
[2025-06-17 06:14] LABS: BASOPHILS ABSOLUTE AUTO 0.18 K/mm3 (0.00-0.23); BASOPHILS PERCENT AUTO 1 % (0-2); EOSINOPHILS ABSOLUTE AUTO 1.37 K/mm3 (0.00-0.68); EOSINOPHILS PERCENT AUTO 8 % (0-6); Hematocrit 35.0 % (37.0-53.0); Hemoglobin 12.2 g/dL (13.5-17.5); IMMATURE GRAN ABSOLUTE AUTO 0.45 K/mm3 (0.00-0.10); IMMATURE GRAN PERCENT AUTO 3 % (0-1); LYMPHOCYTES ABSOLUTE AUTO 1.63 K/mm3 (0.84-5.20); LYMPHOCYTES PERCENT AUTO 10 % (21-46); MONOCYTES ABSOLUTE AUTO 1.13 K/mm3 (0.16-1.47); MONOCYTES PERCENT AUTO 7 % (4-13); Mean Corpuscular HGB Conc 34.9 g/dL (31.5-36.5); Mean Corpuscular Volume 88 fL (80-100); NEUTROPHILS ABSOLUTE AUTO 11.53 K/mm3 (1.96-9.15); NEUTROPHILS PERCENT AUTO 71 % (41-73); NRBC ABSOLUTE 0.00 K/mm3 (0.00-0.02); NRBC Auto 0.0 /100 WBC (0.0-0.2); Platelet Count 471 K/mm3 (150-400); RDW Coefficient Variation 14.2 % (11.7-14.2); RDW Standard Deviation 45.9 fL (35.1-46.3)
[2025-06-17 06:26] LABS: Prothrombin Time Results 14.5 Sec (9.7-11.5)
[2025-06-17 06:36] LABS: Alanine Aminotransfer (ALT/SGP 252.0 U/L (12-78); Albumin, Blood 2.4 g/dL (3.4-5.0); Albumin/Globulin Ratio 0.7 (0.8-1.8); Anion Gap 7.0 mmol/L (3-11); Aspartate Aminotrans (AST/SGOT 196.0 U/L (12-37); Bilirubin, Total 12.2 mg/dL (0.1-1.0); Blood Urea Nitrogen 21.0 mg/dL (8-24); CO2, Blood 31.0 mmol/L (21-32); Calcium, Blood 8.9 mg/dL (8.5-10.1); Chloride, Blood 98.0 mmol/L (98-108); Creatinine, Blood 1.66 mg/dL (0.60-1.20); Globulin, Blood 3.4 g/dL (2.2-4.0); Glucose, Blood 108.0 mg/dL (70-99); Magnesium, Blood 2.2 mg/dL (1.6-2.4); Phosphorus, Blood 2.3 mg/dL (2.5-4.9); Potassium, Blood 3.2 mmol/L (3.5-5.5); Sodium, Blood 133.0 mmol/L (136-145); Total Protein, Blood 5.8 g/dL (6.4-8.2)
[2025-06-17] MEDS ORDERED: Potassium Chl 20MEQ/Water100ML 100 ML IV ONE (07:20)
[2025-06-17] MEDS ORDERED: Potassium Chloride 10 Meq Tablet SA PO ONE (07:20)
[2025-06-17 07:34] VITALS: BP 132/80
[2025-06-17 07:54] LABS: HCV QNT BY NAAT (IU/ML) Not Detected; HCV QNT BY NAAT (LOG IU/ML) Not Detected; HCV QNT BY NAAT INTERP Not Detected (Not Detected)
[2025-06-17] MEDS ORDERED: Potassium Chloride 10 Meq Tablet SA PO SCH (09:00)
[2025-06-17] MEDS ORDERED: Potassium Phosphate Dibasic 20 MM in Dextrose 5% 500 ML IV ONE (10:00)
[2025-06-17] MEDS ORDERED: Pantoprazole Sodium 40 MG Injection IV SCH (11:00)
[2025-06-17 11:05] VITALS: BP 144/82
[2025-06-17 15:49] VITALS: BP 131/80
[2025-06-17] MEDS ORDERED: Nystatin 100,000 Unit/ML Susp 5 ML UDC MT SCH (17:00)
[2025-06-17 19:25] VITALS: BP 122/70
[2025-06-17 21:03] LABS: HSV SUBTYPE SOURCE Blood
[2025-06-18] VITALS (7 sets, daily range): BP systolic 110–139; BP diastolic 63–82
--- NOTE | 2025-06-18 04:09 | NUR ---
SHIFT SUMMARY NO ACUTE EVENTS DURING THIS SHIFT. PT IS A/O X4, ABLE TO MAKE HIS NEEDS KNOWN AND COOPERATIVE WITH CARE. SUPPORTIVE BY THE BEDSIDE SPENDING THE NIGHT AT THE HOSPITAL. O2 @3L VIA NC, O2 SAT'S>96%. PT DENIES SOB. MEDICATED FOR NAUSEA WITH PRN ZOFRAN, FOR INTERMITTENT COUGH WITH PRN ROBITUSSIN AND FOR ABD PAIN 7/10 RADIATING TO FLANKS BILATERALLY AND WITH LEFT SIDED STERNAL AREA PAIN WITH PRN OXYCODONE PO. MEDICATED WITH PRN THORAZINE PO FOR CONTINUOUS HICCUPS. NPO AFTER MIDNIGHT FOR SCHEDULED ENDOSCOPY TODAY 06/18/25. TELE: NSR@94, PT DENIES CP/PRESSURE/H/A. BED AT THE LOWEST POSITION, CALL LIGHT W/I REACH. AT HS POOR PO INTAKE.
[2025-06-18 06:06] LABS: BASOPHILS ABSOLUTE AUTO 0.17 K/mm3 (0.00-0.23); BASOPHILS PERCENT AUTO 1 % (0-2); EOSINOPHILS ABSOLUTE AUTO 1.60 K/mm3 (0.00-0.68); EOSINOPHILS PERCENT AUTO 9 % (0-6); Hematocrit 34.7 % (37.0-53.0); Hemoglobin 12.3 g/dL (13.5-17.5); IMMATURE GRAN ABSOLUTE AUTO 0.67 K/mm3 (0.00-0.10); IMMATURE GRAN PERCENT AUTO 4 % (0-1); LYMPHOCYTES ABSOLUTE AUTO 1.45 K/mm3 (0.84-5.20); LYMPHOCYTES PERCENT AUTO 8 % (21-46); MONOCYTES ABSOLUTE AUTO 1.03 K/mm3 (0.16-1.47); MONOCYTES PERCENT AUTO 6 % (4-13); Mean Corpuscular HGB Conc 35.4 g/dL (31.5-36.5); Mean Corpuscular Volume 86 fL (80-100); NEUTROPHILS ABSOLUTE AUTO 12.24 K/mm3 (1.96-9.15); NEUTROPHILS PERCENT AUTO 71 % (41-73); NRBC ABSOLUTE 0.00 K/mm3 (0.00-0.02); NRBC Auto 0.0 /100 WBC (0.0-0.2); Platelet Count 517 K/mm3 (150-400); RDW Coefficient Variation 14.3 % (11.7-14.2); RDW Standard Deviation 44.3 fL (35.1-46.3)
[2025-06-18 06:46] LABS: Alanine Aminotransfer (ALT/SGP 367.0 U/L (12-78); Albumin, Blood 2.5 g/dL (3.4-5.0); Albumin/Globulin Ratio 0.6 (0.8-1.8); Anion Gap 8.0 mmol/L (3-11); Aspartate Aminotrans (AST/SGOT 247.0 U/L (12-37); Bilirubin, Total 12.4 mg/dL (0.1-1.0); Blood Urea Nitrogen 20.0 mg/dL (8-24); CO2, Blood 32.0 mmol/L (21-32); Calcium, Blood 8.5 mg/dL (8.5-10.1); Chloride, Blood 95.0 mmol/L (98-108); Creatinine, Blood 1.65 mg/dL (0.60-1.20); Globulin, Blood 3.9 g/dL (2.2-4.0); Glucose, Blood 122.0 mg/dL (70-99); Magnesium, Blood 2.3 mg/dL (1.6-2.4); Phosphorus, Blood 3.0 mg/dL (2.5-4.9); Potassium, Blood 3.1 mmol/L (3.5-5.5); Sodium, Blood 132.0 mmol/L (136-145); Total Protein, Blood 6.4 g/dL (6.4-8.2)
[2025-06-18] MEDS ORDERED: Fat Emulsion 20 % IV 250 ML IV SCH (12:40)
[2025-06-18] MEDS ORDERED: Phenylephrine HCl 10mg/ml 1 ml Vial ONE ×2 (15:43→15:56)
--- NOTE | 2025-06-18 15:47 | NUR ---
06/18/[address] SEE ANESTHESIA RECORDS.
[2025-06-18] MEDS ORDERED: Peg 400/Hypromellose/Glycerin 15 DROP/ML BTL BOTHEYES PRN (17:20)
[2025-06-18] MEDS ORDERED: Dextran/Hypromellose/Glycerin 15 DROP/ML BTL BOTHEYES PRN (17:35)
--- NOTE | 2025-06-18 18:43 | NUR ---
PT C/O DIFFICULTY SEEING, WORSE IN LEFT EYE, DESCRIBED FEELING LIKE ROCKS IN BILAT EYES AND VERY BLURRY IN LEFT. DR. ALBA AT BEDSIDE. EYE DROPS AND OINTMENT ORDERED. EGD TODAY. HICCUPS PERSIST. 3L NC. INDEPENDENT IN THE ROOM
[2025-06-18] MEDS ORDERED: POLYMYX BOTHEYES SCH ×2 (21:00)
[2025-06-18] MEDS ORDERED: NEOMYCIN BOTHEYES SCH ×2 (21:00)
[2025-06-18] MEDS ORDERED: [UNRECOGNIZED DRUG - OTHER] BOTHEYES SCH ×2 (21:00)
[2025-06-19] VITALS (7 sets, daily range): BP systolic 115–136; BP diastolic 62–84
--- NOTE | 2025-06-19 03:45 | NUR ---
ASSUMING CARE HANDOFF RECEIVED FROM VIKKI BRUCE. THIS RN IS ASSUMING CARE AT THIS TIME WITH MY ORIENTEE.
--- NOTE | 2025-06-19 03:55 | NUR ---
SHIFT SUMMARY NO ACUTE EVENTS DURING THIS SHIFT. PT DENIES PAIN AT HS. CLINIMEX INFUSING ORDERED. PT RESTING T/O THIS SHIFT. NO EVENTS ON TELE. O2 AT 3L VIA NC, PT DENIES SOB. ICE CREAM SNACK PROVIDED AT HS. POOR PO INTAKE. PER PREVIOUS SHIFT RN, PLEASE LET DR. ALBA KNOW TO WAIT FOR THE PT'S TO JOIN TO TODAY'S ROUNDING. THIS MOTORMAN/WOMAN GAVE A REPORT APPROXIMATELY 0340 TO FRACISCO SANCHEZ AND FRACISCO ANAYA. BED AT THE LOWEST POSITION, CALL LIGHT W/I REACH.
[2025-06-19 05:48] LABS: Prothrombin Time Results 13.7 Sec (9.7-11.5)
[2025-06-19 05:59] LABS: Alanine Aminotransfer (ALT/SGP 404 U/L (12-78); Albumin, Blood 2.1 g/dL (3.4-5.0); Albumin/Globulin Ratio 0.5 (0.8-1.8); Anion Gap 7 mmol/L (3-11); Aspartate Aminotrans (AST/SGOT 224 U/L (12-37); Bilirubin, Total 11.4 mg/dL (0.1-1.0); Blood Urea Nitrogen 24 mg/dL (8-24); CO2, Blood 31 mmol/L (21-32); Calcium, Blood 8.5 mg/dL (8.5-10.1); Chloride, Blood 96 mmol/L (98-108); Creatinine, Blood 1.66 mg/dL (0.60-1.20); Globulin, Blood 3.9 g/dL (2.2-4.0); Glucose, Blood 131 mg/dL (70-99); Magnesium, Blood 2.5 mg/dL (1.6-2.4); Phosphorus, Blood 3.1 mg/dL (2.5-4.9); Potassium, Blood 3.5 mmol/L (3.5-5.5); Sodium, Blood 130 mmol/L (136-145); Total Protein, Blood 6.0 g/dL (6.4-8.2)
[2025-06-19 08:43] LABS: BASOPHILS ABSOLUTE AUTO 0.16 K/mm3 (0.00-0.23); BASOPHILS PERCENT AUTO 1 % (0-2); EOSINOPHILS ABSOLUTE AUTO 1.68 K/mm3 (0.00-0.68); EOSINOPHILS PERCENT AUTO 11 % (0-6); Hematocrit 35.5 % (37.0-53.0); Hemoglobin 12.2 g/dL (13.5-17.5); IMMATURE GRAN ABSOLUTE AUTO 0.57 K/mm3 (0.00-0.10); IMMATURE GRAN PERCENT AUTO 4 % (0-1); LYMPHOCYTES ABSOLUTE AUTO 1.51 K/mm3 (0.84-5.20); LYMPHOCYTES PERCENT AUTO 9 % (21-46); MONOCYTES ABSOLUTE AUTO 1.06 K/mm3 (0.16-1.47); MONOCYTES PERCENT AUTO 7 % (4-13); Mean Corpuscular HGB Conc 34.4 g/dL (31.5-36.5); Mean Corpuscular Volume 90 fL (80-100); NEUTROPHILS ABSOLUTE AUTO 11.09 K/mm3 (1.96-9.15); NEUTROPHILS PERCENT AUTO 69 % (41-73); NRBC ABSOLUTE 0.00 K/mm3 (0.00-0.02); NRBC Auto 0.0 /100 WBC (0.0-0.2); Platelet Count 575 K/mm3 (150-400); RDW Coefficient Variation 14.6 % (11.7-14.2); RDW Standard Deviation 47.7 fL (35.1-46.3)
--- NOTE | 2025-06-19 16:39 | NUR ---
SHIFT SUMMARY PT AOX4, COOPERATIVE, ABLE TO MAKE NEEDS KNOWN. PT IS IND IN ROOM. TOLERATING AND RUNNING FLUIDS. CURRENLTY ON 2L O2 CURRENLTY, RT IS TITRATING PRN. TOLERATING MEDICATIONS. NO OTHER ACUTE EVENTS TOOK PLACE THIS SHIFT. FAMILY BEEN BEDSIDE MOST OF SHIFT. BED IN LOWEST POSITION, CALL LIGHT WITHIN REACH.
[2025-06-20 03:46] VITALS: BP 131/74
--- NOTE | 2025-06-20 05:16 | NUR ---
END OF SHIFT SUMMARY: AxOX4. FULL CODE. 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 PATIENT IS ON TELE NSR @ 74 BPM. PATIENT IS ON CLINIMIX. PATIENT IS ABLE TO MAKE NEEDS KNOWN. PATIENT CAN ADVOCATE FOR NEEDS. PATIENT IS INDEPENDENT IN THE ROOM. CONTINENT OF BOWEL AND BLADDER. TAKES MEDS WHOLE WITH FLUIDS. PATIENT IS ON A HEART HEALTHY DIET. BED IN LOWEST POSITION. CALL LIGHT WITHIN REACH AND PATIENT HAS BEEN EDUCATED ON HOW TO USE. WILL REPORT TO ONCOMING NURSE.
[2025-06-20 05:30] LABS: BASOPHILS ABSOLUTE AUTO 0.17 K/mm3 (0.00-0.23); BASOPHILS PERCENT AUTO 1 % (0-2); EOSINOPHILS ABSOLUTE AUTO 1.88 K/mm3 (0.00-0.68); EOSINOPHILS PERCENT AUTO 13 % (0-6); Hematocrit 36.1 % (37.0-53.0); Hemoglobin 12.6 g/dL (13.5-17.5); IMMATURE GRAN ABSOLUTE AUTO 0.59 K/mm3 (0.00-0.10); IMMATURE GRAN PERCENT AUTO 4 % (0-1); LYMPHOCYTES ABSOLUTE AUTO 1.71 K/mm3 (0.84-5.20); LYMPHOCYTES PERCENT AUTO 11 % (21-46); MONOCYTES ABSOLUTE AUTO 1.03 K/mm3 (0.16-1.47); MONOCYTES PERCENT AUTO 7 % (4-13); Mean Corpuscular HGB Conc 34.9 g/dL (31.5-36.5); Mean Corpuscular Volume 89 fL (80-100); NEUTROPHILS ABSOLUTE AUTO 9.65 K/mm3 (1.96-9.15); NEUTROPHILS PERCENT AUTO 64 % (41-73); NRBC ABSOLUTE 0.00 K/mm3 (0.00-0.02); NRBC Auto 0.0 /100 WBC (0.0-0.2); Platelet Count 621 K/mm3 (150-400); RDW Coefficient Variation 14.6 % (11.7-14.2); RDW Standard Deviation 47.4 fL (35.1-46.3)
[2025-06-20 05:49] LABS: Alanine Aminotransfer (ALT/SGP 393.0 U/L (12-78); Albumin, Blood 2.3 g/dL (3.4-5.0); Albumin/Globulin Ratio 0.6 (0.8-1.8); Anion Gap 7.0 mmol/L (3-11); Aspartate Aminotrans (AST/SGOT 193.0 U/L (12-37); Bilirubin, Total 9.9 mg/dL (0.1-1.0); Blood Urea Nitrogen 22.0 mg/dL (8-24); CO2, Blood 30.0 mmol/L (21-32); Calcium, Blood 8.6 mg/dL (8.5-10.1); Chloride, Blood 98.0 mmol/L (98-108); Creatinine, Blood 1.46 mg/dL (0.60-1.20); Globulin, Blood 4.1 g/dL (2.2-4.0); Glucose, Blood 114.0 mg/dL (70-99); Magnesium, Blood 2.6 mg/dL (1.6-2.4); Phosphorus, Blood 2.9 mg/dL (2.5-4.9); Potassium, Blood 3.9 mmol/L (3.5-5.5); Sodium, Blood 131.0 mmol/L (136-145); Total Protein, Blood 6.4 g/dL (6.4-8.2)
[2025-06-20 08:12] VITALS: BP 129/79
--- NOTE | 2025-06-20 09:00 | NUR ---
pt laying in bed awake a/ox4, pleasant and cooperative with care, follows commands well, at bedside, lungs are clear t/o, resp even and unlabored, no cough noted, hrr, tele in place running sr in the 70's, no edema noted, ppp+2, cap refill< 3 sec, vs stable, afebrile, power glide to brooke site is clear and patent, btx4, abd flat soft nontender, voids tea colored urine via urinal, skin c/w/d, shanita barry, call light in reach.
[2025-06-20] MEDS ORDERED: LORazepam 2 MG/ML 1ML Injection IV ONE (11:00)
[2025-06-20 11:53] VITALS: BP 167/89
[2025-06-20 11:55] VITALS: BP 117/69
[2025-06-20] MEDS ORDERED: ARTIFICIAL TEAR15 M7 BOTHEYES (14:11)
[2025-06-20] MEDS ORDERED: FURO40 PO (14:26)
[2025-06-20] MEDS ORDERED: MULVITA PO (14:29)
[2025-06-20] MEDS ORDERED: Lopressor 25 mg25 MG PO (14:29)
[2025-06-20] MEDS ORDERED: NEOPOLDEXO BOTHEYES (14:32)
[2025-06-20] MEDS ORDERED: NYSTATIN100000 U10 MT (14:37)
[2025-06-20] MEDS ORDERED: ONDA4ODT MM (14:38)
[2025-06-20] MEDS ORDERED: OXAYDO5 M1 PO (14:41)
[2025-06-20] MEDS ORDERED: PANT20 PO (14:42)
[2025-06-20] MEDS ORDERED: POTA20LUD PO (14:43)
[2025-06-20] MEDS ORDERED: B-1100 M1 PO (14:45)
[2025-06-20] MEDS ORDERED: [UNRECOGNIZED DRUG - CODE] PO (14:46)
--- NOTE | 2025-06-20 16:10 | NUR ---
pt has been discharged to home, went over discharge instructions with him and spouce, they verbalized understanding, power glide removed intact, new meds faxed to [facility], left via wheelchair with identification clerk and family in attendence.
== END 2025-06-20 16:30 | disposition home or self-care (01) | DRG 871 ==
LOC: ER 08:26 → MEDS 08:27
PROVIDERS: Emergency Medicine; Internal Medicine; Internal Medicine Gastroenterology; Internal Medicine Nephrology; ADMIT Student in an Organized Health Care Education/Training Program
PROC: 3E03329 Introduction of Other Anti-infective into Peripheral Vein, Percutaneous Approach (ICD-10-PCS; principal; 2025-06-10)
PROC: 30233J1 Transfusion of Nonautologous Serum Albumin into Peripheral Vein, Percutaneous Approach (ICD-10-PCS; 2025-06-14)
PROC: 0DB68ZZ Excision of Stomach, Via Natural or Artificial Opening Endoscopic (ICD-10-PCS; 2025-06-18)
PROC: 0DB98ZX Excision of Duodenum, Via Natural or Artificial Opening Endoscopic, Diagnostic (ICD-10-PCS; 2025-06-18)
PROC: 0DB38ZX Excision of Lower Esophagus, Via Natural or Artificial Opening Endoscopic, Diagnostic (ICD-10-PCS; 2025-06-18 15:00)
DX: A41.9 Sepsis, unspecified organism (principal); J18.9 Pneumonia, unspecified organism; J96.01 Acute respiratory failure with hypoxia; K83.1 Obstruction of bile duct; E87.1 Hypo-osmolality and hyponatremia; N17.9 Acute kidney failure, unspecified; B25.1 Cytomegaloviral hepatitis; D80.2 Selective deficiency of immunoglobulin A [IgA]; K22.10 Ulcer of esophagus without bleeding; R65.20 Severe sepsis without septic shock; R00.0 Tachycardia, unspecified; E80.6 Other disorders of bilirubin metabolism; N18.31 Chronic kidney disease, stage 3a; I12.9 Hypertensive chronic kidney disease with stage 1 through stage 4 chronic kidney disease, or unspecified chronic kidney disease; R07.81 Pleurodynia; G89.29 Other chronic pain; R91.8 Other nonspecific abnormal finding of lung field; R79.1 Abnormal coagulation profile; E87.6 Hypokalemia; D63.1 Anemia in chronic kidney disease; E88.09 Other disorders of plasma-protein metabolism, not elsewhere classified; R31.29 Other microscopic hematuria; R80.9 Proteinuria, unspecified; E83.39 Other disorders of phosphorus metabolism; H10.9 Unspecified conjunctivitis; K26.9 Duodenal ulcer, unspecified as acute or chronic, without hemorrhage or perforation; Z83.79 Family history of other diseases of the digestive system; Z87.442 Personal history of urinary calculi; Z90.49 Acquired absence of other specified parts of digestive tract; Z90.89 Acquired absence of other organs; Z98.890 Other specified postprocedural states; Z79.899 Other long term (current) drug therapy; Z88.5 Allergy status to narcotic agent
CPT/HCPCS: 0202U; 36415; 71046; 71260; 74177; 76705; 80053; 80069; 80074; 80076; 81001; 82103; 82248; 82390; 82533; 82728; 82784; 82787; 83540; 83550; 83605; 83735; 83880; 84100; 84132; 84145; 84156; 84300; 84443; 84484; 84550; 85014; 85018; 85025; 85610; 86015; 86038; 86361; 86364; 86381; 86403; 86480; 86635; 86644; 86645; 86665; 86701; 86702; 86787; 87040; 87070; 87086; 87106; 87205; 87389; 87449; 87497; 87517; 87522; 87529; 87535; 87538; 87798; 93005; 93010; 93306; 94762; 96365-59; 96366; 96375; 96376; 99285-25; A9270; C1751; G0378; J0456; J1650; J1885; J1938; J2060; J2371; J2405; J2470; J2543; J2704; J2765; J3480; J7030; J7050; J7060; J7120; P9047; Q9967

== ENCOUNTER → 2025-06-10 | Outpatient (CLI) | payer BC ==
[~2025-06-10] MED LIST changes: +OLMESARTAN MEDO20 MG PO
[2025-06-10 07:49] LABS: BASOPHILS ABSOLUTE AUTO 0.05 K/mm3 (0.00-0.23); BASOPHILS PERCENT AUTO 0 % (0-2); EOSINOPHILS ABSOLUTE AUTO 0.27 K/mm3 (0.00-0.68); EOSINOPHILS PERCENT AUTO 1 % (0-6); Hematocrit 44.0 % (37.0-53.0); Hemoglobin 15.3 g/dL (13.5-17.5); IMMATURE GRAN ABSOLUTE AUTO 0.11 K/mm3 (0.00-0.10); IMMATURE GRAN PERCENT AUTO 1 % (0-1); LYMPHOCYTES ABSOLUTE AUTO 1.10 K/mm3 (0.84-5.20); LYMPHOCYTES PERCENT AUTO 5 % (21-46); MONOCYTES ABSOLUTE AUTO 1.98 K/mm3 (0.16-1.47); MONOCYTES PERCENT AUTO 10 % (4-13); Mean Corpuscular HGB Conc 34.8 g/dL (31.5-36.5); Mean Corpuscular Volume 91 fL (80-100); NEUTROPHILS ABSOLUTE AUTO 16.89 K/mm3 (1.96-9.15); NEUTROPHILS PERCENT AUTO 83 % (41-73); NRBC ABSOLUTE 0.00 K/mm3 (0.00-0.02); NRBC Auto 0.0 /100 WBC (0.0-0.2); Platelet Count 301 K/mm3 (150-400); RDW Coefficient Variation 12.8 % (11.7-14.2); RDW Standard Deviation 42.1 fL (35.1-46.3)
[2025-06-10 08:01] LABS: Alanine Aminotransfer (ALT/SGP 313.0 U/L (12-78); Albumin, Blood 3.0 g/dL (3.4-5.0); Albumin/Globulin Ratio 0.7 (0.8-1.8); Anion Gap 10.0 mmol/L (3-11); Aspartate Aminotrans (AST/SGOT 205.0 U/L (12-37); Bilirubin, Total 7.4 mg/dL (0.1-1.0); Blood Urea Nitrogen 9.0 mg/dL (8-24); Calcium, Blood 8.8 mg/dL (8.5-10.1); Chloride, Blood 100.0 mmol/L (98-108); Creatinine, Blood 1.47 mg/dL (0.60-1.20); Globulin, Blood 4.3 g/dL (2.2-4.0); Glucose, Blood 143.0 mg/dL (70-99); Potassium, Blood 3.8 mmol/L (3.5-5.5); Sodium, Blood 134.0 mmol/L (136-145); Total Protein, Blood 7.3 g/dL (6.4-8.2)
[2025-06-10 08:07] LABS: CO2, Blood 28.0 mmol/L (21-32)
== END | disposition home or self-care (01) ==
LOC: LAB 07:45 → LAB SHORT 07:45
PROVIDERS: Physician Assistant
DX: R07.89 Other chest pain (principal); R10.13 Epigastric pain
CPT/HCPCS: 80053; 83690; 84484; 85025